=== PATIENT | male | born 1955 | race Caucasian/White ===

== ENCOUNTER 2021-03-04 11:07 | Inpatient (IN) | payer BC, MEDICARE ==
[~2021-03-04] VITALS: Ht 175.3 cm; Wt 109.1 kg
[2021-03-04 12:38] LABS: HEMATOCRIT 48.8 % (42.0-52.0); HEMOGLOBIN 16.1 g/dl (13.5-17.5); MEAN CORPUSCULAR HEMOGLOBIN 31.4 pg (27.0-33.0); MEAN CORPUSCULAR VOLUME 95.1 fl (80.0-96.0); PLATELET COUNT, AUTOMATED 192 10^3/uL (150-450); RED BLOOD COUNT 5.13 10^6/uL (4.30-6.10)
[2021-03-04 13:02] LABS: AMPHETAMINES LEVEL URINE NEGATIVE (NEGATIVE); BARBITURATES URINE NEGATIVE (NEGATIVE); BENZODIAZEPINES URINE POSITIVE (NEGATIVE); CANNABINOIDS URINE NEGATIVE (NEGATIVE); COCAINE METABOLITE URINE NEGATIVE (NEGATIVE); METHADONE URINE NEGATIVE (NEGATIVE); OPIATES URINE NEGATIVE (NEGATIVE); PHENCYCLIDINE URINE NEGATIVE (NEGATIVE)
[2021-03-04 13:18] LABS: ACETAMINOPHEN LEVEL < 2.0 UG/ML (10.0-30.0); ALBUMIN 3.4 GM/DL (3.2-5.2); ALT/SGPT 24 U/L (12-78); BILIRUBIN,DIRECT 0.1 MG/DL (0.0-0.2); BILIRUBIN,TOTAL 0.5 MG/DL (0.2-1.0); BLOOD UREA NITROGEN 17 MG/DL (7-18); CALCIUM LEVEL 8.5 MG/DL (8.8-10.2); CARBON DIOXIDE LEVEL 28 MEQ/L (21-32); CHLORIDE LEVEL 108 MEQ/L (98-107); CREATININE FOR GFR 0.92 MG/DL (0.70-1.30); ETHYL ALCOHOL (ETHANOL) < 0.003 % (0.000-0.010); GLOMERULAR FILTRATION RATE > 60.0 (>49); GLUCOSE, FASTING 91 MG/DL (70-100); POTASSIUM SERUM 5.1 MEQ/L (3.5-5.1); SALICYLATE LEVEL < 1.7 MG/DL (5.0-30.0); SODIUM LEVEL 140 MEQ/L (136-145); THYROID STIMULATING HORMONE 0.894 uIU/ML (0.358-3.740); TOTAL PROTEIN 6.8 GM/DL (6.4-8.2)
[2021-03-04] MEDS ORDERED: ALPRAZolam 0.5 MG TAB PO ONE (15:30)
[2021-03-04 15:56] LABS: RSV AMPLIFICATION NEGATIVE (NEGATIVE)
--- NOTE | 2021-03-04 19:53 | ECGEPIP ---
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
[2021-03-05] MEDS ORDERED: ALPRAZolam 0.5 MG TAB PO ONE ×3 (02:30→22:45)
[2021-03-05] MEDS ORDERED: ALPR1TAB3 PO (07:48)
[2021-03-05] MEDS ORDERED: CITA40TA4 PO (07:48)
[2021-03-06] MEDS ORDERED: ACETAMINOPHEN TAB 650MG DOSE (2X325MG) PO PRN (15:40)
[2021-03-06] MEDS ORDERED: MOM 30ML SUSPENSION UDC PO PRN (15:40)
[2021-03-06] MEDS ORDERED: MAALOX 30 ML SUSP *UDC PO PRN (15:40)
[2021-03-06 16:14] LABS: RSV AMPLIFICATION NEGATIVE (NEGATIVE)
[2021-03-06] MEDS: ALPRAZolam 0.5 MG TAB PO PRN (16:57)
[2021-03-06] MEDS ORDERED: traZODone 50 MG TAB PO PRN (21:00)
[2021-03-06 23:00] VITALS: BP 138/86
[2021-03-07] MEDS: ALPRAZolam 0.5 MG TAB PO PRN ×3 (00:06→23:02)
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
[2021-03-07 16:05] VITALS: BP 140/99
--- NOTE | 2021-03-07 19:18 | HPEPDOC ---
[facility] Medical History & Physical Date of Admission Mar 06, 2021 Date of Service: Mar 07, 2021 Attending Physician: PJ GABRIEL MD History and Physical CHIEF COMPLAINT: Brought in by police after he made suicidal statements on voicemail to his while intoxicated. HISTORY OF PRESENT ILLNESS: 65 -year-old M with a history of bladder CA s/p resection with urostomy, history of prostatectomy who lives in the [facility] but was here at a family summer home fishing and made a call to his during which he left a suicidal statement and she called police who came to his home and took him to the ED for evaluation. In the ED, he reported that he had been drinking and felt sad as this is about the time that his son committed suicide a few years ago but he otherwise was not actually suicidal and was not planning to hurt or end his life. He denied recent particular stressors and reports rare alcohol use but that he drinks too much when he does but never drinks at home because it upsets his . His ED medical evaluation was unremarkable and he was admitted to the [facility] for suicidal statements with inferred ideation. Past Medical History History of Bladder Cancer Urostomy Prostatectomy Sugeries: Bladder and prostatectomy Family Medical history father - diabetes () Maternal grandfather- depression and anxiety Social History: Occasional alcohol, excessive when he does drink No smoking No illicit drug use ROS: per HPI, otherwise 10 point ROS was negative Physical examination: Vitals: see below General: NAD Head: NCAT Eyes: Anicteric, EOMI ENT: MMM Neck: supple Pulm: CTAB Cardiac: RRR, no m/r/g Abd: Urostomy at RLQ, obese, soft, normoactive sounds, NTND Ext: WWP, no LE edema Psych: AOx3, normal affect, mood appears normal, makes appropriate jokes, does minimize his suicidal statements Labs: Reviewed Assessment: 65 -year-old M with a history of bladder CA s/p resection with urostomy, history of prostatectomy who lives in the [facility] but was here at a family summer home fishing and made a call to his during which he left a suicidal statement and she called police who came to his home and took him to the ED for evaluation and is now admitted to the [facility] for suicidal statements with inferred ideation. Suicidal statements with a history of depression i/s/o alcohol intoxication, around the annivesary of son who committed suicide -Plan per primary psych team Bladder CA s/p urostomy: -Urostomy is working well, no noted issues DVT ppx: ambulatory Medicine will sign off at this time. Vital Signs Vital Signs Date Time Temp Pulse Resp B/P (MAP) Pulse Ox O2 Delivery O2 Flow Rate FiO2 03/07/21 16:05 98.0 93 18 140/99 (113) 99 Room Air Home Medications Scheduled PRN Alprazolam (Alprazolam) 1 Mg Tablet, 1 MG PO TID PRN for ANXIETY Allergies Coded Allergies: No Known Allergies (Unverified , 03/04/21) A-FIB/CHADSVASC A-FIB History Current/History of A-Fib/PAF?: No Current PO Anticoag Therapy: No Age/Risk Factor Scoring CHADSVASC: CHADSVASC Response (Comments) Value Age Risk Factor Age 65-74 years old 1 Gender Risk Factor Male 0 Hx of CHF No 0 Hx of HTN No 0 Hx of Stroke/TIA/or VTE No 0 Hx of Diabetes No 0 Hx of Vascular Disease No 0 Total 1 Treatment Treatment ordered: NONE Reason Anticoagulant not given: Not indicated/[id number] PJ GABRIEL MD Mar 07, 2021 19:18
[2021-03-08 06:56] VITALS: BP 125/71
[2021-03-08] MEDS: ALPRAZolam 0.5 MG TAB PO PRN (10:43)
--- NOTE | 2021-03-08 12:35 | MHDSPDOC ---
[facility] Discharge Summary Discharge Summary DATE OF ADMISSION: Mar 06, 2021 at 15:36 DATE OF DISCHARGE: March 08, 2021 at 1212 DISCHARGE DIAGNOSES: Unspecified Depressive Disorder Alcohol Use Disorder Alcohol Intoxications rule out Alcohol Induced Depressive Disorder REASON FOR ADMISSION: Patient is a 65 -year-old , Retired, Domiciled , male, who had sent a suicidal statement to his , who then called the Police. Per the patient "The first officer brought me to the hospital because I got drunk and left a message on my home machine saying I was going to hurt myself." States that he left the message for his . Denies that he is suicidal in the interview. States "I had too much to drink and my expected me to call every time I am at the [employer] [place] (patient lives in [place], [place] but was at his Grandfather's fishing camp at [facility]) He reports that several years ago his son , states "I don't know if he suicided or not and this is about the time that it happened." Patient recently had removal of his bladder and prostate and has a urostomy. PER ED REPORT: Pt's called after she woke up to a voicemail of Pt expressing suicide and essentially saying goodbye. Pt admitted to officer that he left the voicemail, reports alcohol intoxication at time, but also endorses thoughts and confirms he has the means with access to a gun and Xanax. Pt presents with a very flat affect. Pt admits that he made suicidal statements last evening and said "I may or may not wanna live anymore" Pt makes many hopeless statements throughout the interview. Pt reports that he his 50 years ago when she became , but she was never really the love of his life. Pt had a son who completed suicide 6 years ago on and this anniversary always gets him down even more. Pt further discusses his medical issues and how last spring when the Dr was going to put in his ostomy bag he asked the Dr about assisted suicide options as he would rather than have "this bag" He states that he can't do anything now because it is already placed, but it is a "pain in the neck" and if he would have known how much of a pain it was, he definitely would have found a way to take his own life rather than have it put in. Pt is feeling as if "I am not a man anymore, they took that from me" Pt expresses that he feels he has nothing to live for, but doesn't really like pain so he wouldn't likely follow through with suicide. "I don't want to live, but wouldn't do anything to hasten it, I do not like pain, so I would need to find a painless way" Pt admits to hopeless thoughts all his life, however has really felt like he should for at least a year or so. VITAL SIGNS: See below. CONSULTANTS INVOLVED: See Medical H + P by Hospitalist TREATMENT AND PROGRESS ON THE UNIT: Patient was admitted to the [facility] on a legal status he was afforded the following treatment modalities: 1) Individual Therapy 2) Group Therapy 3) Medication Management 4) Milieu Therapy 5) Safe Environment HOSPITAL COURSE: Patient is admitted to [facility] on a legal status. He reports that he has been drinking and that he left a message stating that he was going to harm himself in the initial interview, patient denied that he had any continued suicidality, states that he doesn't drink at home, but he does drink when he is away from home, away from his states "I don't drink around my . I don't believe in it" He has had one past mental health evaluation at [facility], but he was not actually admitted to the unit. He had one night in their ER roughly 25 years ago. Patient is well groomed, appears his stated age, wearing hospital scrubs. His ability is tall. He is overweight. His demeanor is average, somewhat guarded. Maintains his eye contact. . He is alert and oriented, pleasant and cooperative in the interview. Speech is normal rate, tone and volume. Mood is mildly depressed. His affect is congruent with that. He is logical and linear. No reports of delusions, ruminations and preoccupations. Does not appear paranoid. No aggressive behaviors. No reports of auditory or visual hallucinations. No impairment of orientation, memory or attention. Cognition is average. His memory is intact. Insight and judgment is good at this time. Patient reports no suicidal ideation. He reports that he is considering his . States that he has been unhappy in his marriage "I don't even like the way our house is - there is animal feces everywhere because of her 12 cats. She spends more money on animals than for our groceries." He had discussed his dissatisfaction with not having a future relationship because of his urostomy and stating that he does not feel that he could find anyone as he has no function sexually. Discussed with patient that he may be able to find pleasure differently but that it is still possible. He states that he would not be able to do so until he is because he takes his vows seriously. Patient was reporting continued depression stating that his depression has been off an on for many years but that he is not suicidal and that he wants to return to his camp and eventually back home. He talked about his dog and how much he loves him. He had future oriented conversations, although I recommended seeing a therapist for his depression and anxiety and recommended medications to which he refused. He is requesting to be discharged and wants to return to camp. States that he does not want to speak to his , as the last time he had a depressive event, she had ruminated on it for many month making him feel guilty. DISCHARGE ASSESSMENT: In today's interview, patient is alert and oriented, pts dress is appropriate. Hygiene and grooming is well-kempt. Smiles on approach and is pleasant and engaged in the interview. Denies depression and anxiety. Denies suicidal and homicidal ideation, planning or intent. Denies and is not observed with ilda, psychotic symptoms of delusions, bizarre thinking, obsessions, paranoia, ruminations illogical thoughts, flight of ideas or having poor insight and judgement. Patient has normal mentation, declines further hospitalization on a voluntary status and meets criteria for discharge today. Patient encouraged to return to hospital if symptoms worsen or change and encouraged to call unit if he/she/they needs to speak to provider for questions regarding medications or care. MENTAL STATUS EXAMINATION ON DISCHARGE: Patient is a 65 -year-old , Retired, Domiciled , male, who had sent a suicidal statement to his , who then called the Police. Per the patient "The first officer brought me to the hospital because I got drunk and left a message on my home machine saying I was going to hurt myself." General Appearance: well groomed, appears stated age, hospital scrubs/clothing Build: overweight Demeanor: withdrawn (mildly) Eye Contact: average Activity: average Behavior: cooperative Speech: clear, normal volume, reg/rate,rhythm,volume Mood: depressed (mild) Affect: flat Thought Process: logical/linear Thought Content (Delusions): none reported Thought Content (Aggressive): none reported Perception (Hallucinations): none reported Perception (Other): none reported Cognition (Impairment of): none reported Oriented: Awake, Alert, Oriented times three Insight: fair Judgment: Fair Psychosis: Denies MEDICATIONS ON DISCHARGE: See Medication Reconciliation, patient refused any alterations, additions or recommendations PLAN/FOLLOWUP ARRANGEMENTS: Patient will be encouraged to seek mental health services in his City - currently he is refusing The amount of time spent in the coordination of care for this patient was approximately 25 minutes. ETOH/Disorder Med Rx ETOH/DRUG DISORDER RX: Offrd @ d/c & pt refused (States that he only drinks when he is away from his , but rarely drinks) Vital Signs/I&Os Vital Signs Date Time Temp Pulse Resp B/P (MAP) Pulse Ox O2 Delivery O2 Flow Rate FiO2 03/08/21 06:56 99.0 62 20 125/71 (89) 98 Room Air Medications Scheduled PRN Alprazolam (Alprazolam) 1 Mg Tablet, 1 MG PO TID PRN for ANXIETY, (Reported) Allergies Coded Allergies: No Known Allergies (Unverified , 03/04/21) DUSTY PUGH NP Mar 08, 2021 12:17
== END 2021-03-08 12:50 | disposition home or self-care (01) | DRG 881 ==
LOC: M ED 11:07 → M ED INP 03-06 15:36 → M PSY 03-06 21:34
PROVIDERS: ADMIT Psychiatry & Neurology Psychiatry; ATTEND Psychiatry & Neurology Psychiatry
DX: F32.9 Major depressive disorder, single episode, unspecified (principal); R45.851 Suicidal ideations; F10.10 Alcohol abuse, uncomplicated; Z85.51 Personal history of malignant neoplasm of bladder

== ENCOUNTER → 2022-07-02 | Outpatient (REF) ==
[~2022-07-02] MED LIST: ALPR1TAB3 PO; CITA40TA7 PO
== END ==
LOC: M LAB 20:33
DX: Z02.89 Encounter for other administrative examinations